=== PATIENT | male | born 1975 | race Two or more races ===

== ENCOUNTER 2016-11-16 14:41 | Emergency (ER) | payer OTHER ==
--- NOTE | 2016-11-16 15:55 | ER Document Report ---
HPI - HPI Patient complains to provider of: left rib and left finger pain Pain Level: 3 Context: pt fell approx 2 ft onto concrete. c/o pain to left chest/ribs and left middle finger Associated Symptoms: None Exacerbated by: Movement, Deep breathing Relieved by: Denies Similar symptoms previously: No Recently seen / treated by doctor: No - ROS Systems Reviewed and Negative: Yes All other systems reviewed and negative - CARDIOVASCULAR Cardiovascular: DENIES: Chest pain - DERM Skin Color: Normal Past Medical History - General Information source: Patient - Social History Smoking Status: Never Smoker Chew tobacco use (# tins/day): No Frequency of alcohol use: Occasional Drug Abuse: None Lives with: Family Family History: Reviewed & Not Pertinent - Medical History Medical History: Negative Renal/ Medical History: Denies: Hx Peritoneal Dialysis Surgical Hx: Negative - Immunizations Hx Diphtheria, Pertussis, Tetanus Vaccination: No Vertical Provider Document - CONSTITUTIONAL Agree With Documented VS: Yes - hypertensive Exam Limitations: No Limitations General Appearance: WD/WN, No Apparent Distress - INFECTION CONTROL TRAVEL OUTSIDE OF THE [place] IN LAST 30 DAYS: No - HEENT HEENT: Atraumatic, PERRLA - NECK Neck: Normal Inspection, Supple - RESPIRATORY Respiratory: Breath Sounds Normal, No Respiratory Distress. negative: Chest Non -Tender - + tenderness to left anterior chest wall O2 Sat by Pulse Oximetry: 95 - CARDIOVASCULAR Cardiovascular: Regular Rate, Regular Rhythm - GI/ABDOMEN Gastrointestinal: Abdomen Soft - BACK Back: Normal Inspection - MUSCULOSKELETAL/EXTREMETIES Musculoskeletal/Extremeties: MAEW, Tender - left middle finger over proximal phalanx - NEURO Level of Consciousness: Awake, Alert, Appropriate Course - Re-evaluation Re-evalutation: 11/16/16 16:34 xrays are negative for fracture. results reviewed with patient. pt is stable for discharge 11/16/16 16:40 BP is noted to be elevated. pt admits to history of untreated HTN. denies any headache, dizziness, chest pain or shortness of breath - Vital Signs Vital signs: Temp Pulse Resp BP Pulse Ox 98.1 F 101 H 16 177/103 H 95 11/16/16 14:47 11/16/16 14:47 11/16/16 14:47 11/16/16 14:47 11/16/16 14:47 Procedures - Immobilization left middle finger Pre-Proc Neuro Vasc Exam: Normal Immobilizer type: Finger protection Performed by: PCT Post-Proc Neuro Vasc Exam: Normal Alignment checked and good: Yes Discharge - Discharge Clinical Impression: Finger sprain Qualifiers: Encounter type: initial encounter Finger: middle finger Sprain of finger site: unspecified site Laterality: left Qualified Code(s): S63.613A - Unspecified sprain of left middle finger, initial encounter Contusion of rib on left side Qualifiers: Encounter type: initial encounter Qualified Code(s): S20.212A - Contusion of left front wall of thorax, initial encounter Instructions: Rib Contusion ([facility]), Sprained Finger ([facility]), Temporary Splint ([facility] ), Ice Packs ([facility]), Ibuprofen (General) ([facility]) Additional Instructions: Your xrays are negative for fractures wear finger splint for comfort and protection alternate ice/heat to sore areas for 15--20 minutes at a time take medications as needed follow up with primary care as needed return to ER for any worsening of status Prescriptions: Ibuprofen [Motrin 800 Mg Tablet] 800 mg PO Q6H #20 tablet Forms: Return to Work, Elevated Blood Pressure
--- NOTE | 2016-11-16 16:24 | RADIOLOGY REPORT (SQ) ---
EXAM DESCRIPTION: FINGER LEFT COMPLETED DATE/TIME: 11/16/2016 4:15 pm REASON FOR STUDY: fell on concrete onto finger COMPARISON: None. NUMBER OF VIEWS: Three views. TECHNIQUE: AP, lateral, and oblique images acquired of the left third finger. LIMITATIONS: None. FINDINGS: MINERALIZATION: Normal. BONES: No acute fracture or dislocation. No worrisome bone lesions. SOFT TISSUES: No soft tissue swelling. No foreign body. OTHER: No other significant finding. IMPRESSION: NO RADIOGRAPHIC EVIDENCE OF ACUTE INJURY. COMMENT: SITE OF TRAUMA/COMPLAINT MARKED/STAMP COMPLETED: YES. TECHNICAL DOCUMENTATION: JOB ID: [id number] [employer]- All Rights Reserved
--- NOTE | 2016-11-16 16:27 | RADIOLOGY REPORT (SQ) ---
EXAM DESCRIPTION: RIBS LEFT W/PA CHEST COMPLETED DATE/TIME: 11/16/2016 4:15 pm REASON FOR STUDY: fell, hit ribs on concrete COMPARISON: None. TECHNIQUE: Frontal view of the chest and additional views of the left ribs acquired. NUMBER OF VIEWS: Three view. LIMITATIONS: None. FINDINGS: FRONTAL CXR: No pneumothorax. No pleural effusion. No atelectasis or infiltrates. RIBS: No displaced rib fractures. No lytic or blastic bony lesions. OTHER: No other significant finding. IMPRESSION: NO PNEUMOTHORAX. NO DISPLACED RIB FRACTURES. COMMENT: SITE OF TRAUMA/COMPLAINT MARKED/STAMP COMPLETED: Yes TECHNICAL DOCUMENTATION: JOB ID: [id number] [employer]- All Rights Reserved
[2016-11-16 16:55] VITALS: BP 150/94
== END 2016-11-16 16:55 | disposition home or self-care (01) ==
LOC: ER 14:41
DX: S63.631A Sprain of interphalangeal joint of left index finger, initial encounter (principal); S20.212A Contusion of left front wall of thorax, initial encounter; W13.4XXA Fall from, out of or through window, initial encounter; I10 Essential (primary) hypertension
CPT/HCPCS: 99283

== ENCOUNTER 2016-11-21 09:50 | Emergency (ER) | payer OTHER ==
--- NOTE | 2016-11-21 10:57 | ER Document Report ---
ED Fall - General Chief Complaint: Fall Injury Stated Complaint: FOLLOW UP FALL RIB PAIN Time Seen by Provider: 11/21/16 10:56 Mode of Arrival: Ambulatory Information source: Patient Notes: This is a 41-year-old man who presents to the emergency room with left chest wall pain after falling 3 feet one week ago. Initial x-rays show no injury to the lung. Of note, patient does have an elevated blood pressure in the emergency room but has not had any chest pain, shortness of breath, abdominal pain, headache. TRAVEL OUTSIDE OF THE [place] IN LAST 30 DAYS: No - HPI Occurred: Last week Where: Outdoors Context: Slipped Associated symptoms: None Location of injury/pain: Chest Quality of pain: Dull Severity: Moderate Pain Level: 2 Prehospital interventions: No: C-collar, Backboard, ADINA, IV, IO, BVM, [place] airway, Nasal airway, Oral airway, Intubation, Needle decompression, Splints, Wound care, Analgesia, Cardiac medications, CPR, Defibrillation, Other - Related data Allergies/Adverse Reactions: No Known Allergies Allergy (Unverified 11/21/16 10:12) Past Medical History - General Information source: Patient - Social History Smoking Status: Never Smoker Cigarette use (# per day): No Chew tobacco use (# tins/day): No Frequency of alcohol use: None Drug Abuse: None Lives with: Family Family History: Reviewed & Not Pertinent Patient has suicidal ideation: No - Medical History Medical History: Negative Renal/ Medical History: Denies: Hx Peritoneal Dialysis Surgical Hx: Negative - Immunizations Hx Diphtheria, Pertussis, Tetanus Vaccination: No Review of Systems - Review of Systems Constitutional: No symptoms reported EENT: No symptoms reported Cardiovascular: No symptoms reported Respiratory: No symptoms reported Gastrointestinal: No symptoms reported Genitourinary: No symptoms reported Male Genitourinary: No symptoms reported Musculoskeletal: See HPI Skin: No symptoms reported Hematologic/Lymphatic: No symptoms reported Neurological/Psychological: No symptoms reported Physical Exam - Vital signs Vitals: Temp Pulse Resp BP Pulse Ox 98.7 F 71 16 164/91 H 99 11/21/16 10:17 11/21/16 10:17 11/21/16 10:17 11/21/16 10:17 11/21/16 10:17 Notes: Physical exam: GENERAL: 41-year-old man, alert and oriented 3, no acute distress. HEAD: Atraumatic, normocephalic. EYES: Pupils equal round and reactive to light, extraocular movements intact, sclera anicteric, conjunctiva are normal. ENT: TMs normal, nares patent, oropharynx clear without exudates. Moist mucous membranes. NECK: Normal range of motion, supple without obvious mass or JVD. LUNGS: Breath sounds clear to auscultation bilaterally and equal. No wheezes rales or rhonchi. Chest wall: Left anterior chest wall tenderness: Point tenderness to palpation. No crepitus. HEART: Regular rate and rhythm without murmurs, rubs or gallops. ABDOMEN: Soft, normoactive bowel sounds. No tenderness to palpation. No guarding, no rebound. No masses appreciated. EXTREMITIES: Normal range of motion, no pitting or edema. No clubbing or cyanosis. NEUROLOGICAL: Cranial nerves II through XII grossly intact. Normal speech, moving all extremities. PSYCH: Normal mood, normal affect. SKIN: Warm, Dry, normal turgor, no rashes or lesions noted. Course - Vital Signs Vital signs: Temp Pulse Resp BP Pulse Ox 98.7 F 71 16 164/91 H 99 11/21/16 10:17 11/21/16 10:17 11/21/16 10:17 11/21/16 10:17 11/21/16 10:17 - Laboratory Result Diagrams: 11/21/16 11:38 11/21/16 11:06 Laboratory results interpreted by me: 11/21/16 11/21/16 11:06 11:38 Eosinophils % 9.2 H Absolute Eosinophils 0.8 H Total Protein 8.3 H - Diagnostic Test Radiology reviewed: Image reviewed, Reports reviewed - Chest x-ray shows no infiltrates or effusions. Discharge - Discharge Clinical Impression: Chest wall contusion, High blood pressure Condition: Stable Disposition: HOME, SELF-CARE Additional Instructions: Chest x-ray shows no injury to the lung. His symptoms are consistent with a contusion to the chest wall and you can have persistent pain for a week or 2 after the fall. Take ibuprofen for the pain. Your blood pressure was elevated: It was elevated the last time you are here. We are starting you on a mild blood pressure medicine. This is on the $4 list at [facility]. I want you to follow-up at the [facility] which is free clinic: Call tomorrow for the next available appointment. Thank you for choosing [facility] for your care. The examination and treatment you have received in the Emergency Department today has been rendered on an emergency basis only and is not intended to be a substitute for complete medical care. You should contact your follow-up physician as it is important that he or she examine you for any new or remaining problems. If given a copy of any lab tests or radiology reports, please bring them with you when you see your physician. If your problem worsens or new symptoms appear and you are unable to arrange prompt follow-up care, return to the Emergency Department. Specific signs to look out for: Worsening pain, shortness of breath or any concerns getting worse. Any other instructions: Start the blood pressure medicine as prescribed. Call the [facility] clinic: Numbers on the chart. Call today for the next available appointment. Prescriptions: Lisinopril 5 mg PO DAILY #30 tablet Referrals: [facility] [Provider Group] - Follow up as needed (This is the number the free clinic: I want you to follow-up for your blood pressure. Call tomorrow for the next available appointment.)
[2016-11-21 11:29] LABS: ALANINE AMINOTRANSFERASE 67 U/L (21-72); ALBUMIN 4.7 g/dL (3.5-5.0); ALKALINE PHOSPHATASE 96 U/L (38-126); ANION GAP 13 (5-19); ASPARTATE AMINO TRANSFERASE 37 U/L (17-59); BILIRUBIN,DIRECT 0.3 mg/dL (0.0-0.4); BILIRUBIN,TOTAL 0.7 mg/dL (0.2-1.3); BLOOD UREA NITROGEN 12 mg/dL (7-20); CALCIUM 9.7 mg/dL (8.4-10.2); CARBON DIOXIDE 25 mmol/L (22-30); CHLORIDE 102 mmol/L (98-107); CREATININE RESULT 0.81 mg/dL (0.52-1.25); GLUCOSE 104 mg/dL (75-110); POTASSIUM 4.1 mmol/L (3.6-5.0); SODIUM 140.2 mmol/L (137-145); TOTAL PROTEIN 8.3 g/dL (6.3-8.2)
--- NOTE | 2016-11-21 11:45 | RADIOLOGY REPORT (SQ) ---
EXAM DESCRIPTION: CHEST PA/LAT COMPLETED DATE/TIME: 11/21/2016 11:33 am REASON FOR STUDY: left anterior point tenderness to the wall COMPARISON: None. EXAM PARAMETERS: NUMBER OF VIEWS: two views TECHNIQUE: Digital Frontal and Lateral radiographic views of the chest acquired. RADIATION DOSE: NA LIMITATIONS: none FINDINGS: LUNGS AND PLEURA: No opacities, masses or pneumothorax. No pleural effusion. MEDIASTINUM AND HILAR STRUCTURES: No masses or contour abnormalities. HEART AND VASCULAR STRUCTURES: Heart normal size. No evidence for failure. BONES: No acute findings. HARDWARE: None in the chest. OTHER: No other significant finding. IMPRESSION: NO SIGNIFICANT RADIOGRAPHIC FINDING IN THE CHEST. TECHNICAL DOCUMENTATION: JOB ID: [id number] [employer]- All Rights Reserved
[2016-11-21 11:51] LABS: ABSOLUTE BASOPHILS # (AUTO) 0.1 10^3/uL (0.0-0.2); ABSOLUTE EOSINOPHILS # (AUTO) 0.8 10^3/uL (0.0-0.6); ABSOLUTE LYMPHOCYTES (AUTO) 1.9 10^3/uL (0.5-4.7); ABSOLUTE MONOCYTES (AUTO) 0.5 10^3/uL (0.1-1.4); ABSOLUTE NEUT (AUTO) 5.2 10^3/uL (1.7-8.2); BASOPHILS % (AUTO) 0.8 % (0-2); EOSINOPHILS % (AUTO) 9.2 % (0-6); HEMATOCRIT 39.5 % (37.9-51.0); HEMOGLOBIN 14.2 g/dL (13.5-17.0); HGB HCT DIFFERENCE 3.1; LYMPHOCYTES % (AUTO) 22.3 % (13-45); MEAN CORPUSCULAR HEMOGLOBIN 30.1 pg (27.0-33.4); MEAN CORPUSCULAR HGB CONC 35.9 g/dL (32.0-36.0); MEAN CORPUSCULAR VOLUME 84 fl (80-97); MONOCYTES % (AUTO) 6.4 % (3-13); RED BLOOD COUNT 4.71 10^6/uL (4.35-5.55); RED CELL DISTRIBUTION WIDTH 12.3 % (11.5-14.0); SEGMENTED NEUTROPHILS % (AUTO) 61.3 % (42-78); WHITE BLOOD COUNT 8.4 10^3/uL (4.0-10.5)
[2016-11-21 12:32] VITALS: BP 170/106
== END 2016-11-21 12:29 | disposition home or self-care (01) ==
LOC: ER 09:50
DX: S20.212A Contusion of left front wall of thorax, initial encounter (principal); R03.0 Elevated blood-pressure reading, without diagnosis of hypertension; W17.89XA Other fall from one level to another, initial encounter
CPT/HCPCS: 36415; 71020; 80053; 85025; 99284